=== PATIENT | female | born 1965 | race Caucasian/White ===

== ENCOUNTER 2024-05-23 13:57 | Emergency (ER) | payer OTHER, SELFPAY ==
[2024-05-23 14:01] VITALS: BP 160/96
--- NOTE | 2024-05-23 15:40 | ED.GENMED ---
History of Present Illness
General
Chief Complaint: Back Pain
Time Seen by Provider: 05/23/24 15:25
History of Present Illness
History of Present Illness:
59-year-old female presents to the emergency department for evaluation of bilateral low back pain rating down the outer legs for the past 6 weeks. Denies any acute trauma. Pain is been gradually worsening despite 2 steroid Dosepaks. Right leg
radiculopathy is worse than the left. She denies any urine retention or saddle anesthesias. 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 Denies any paresthesias.
Past History
Past History
ED Past Medical History: Asthma, Cancer (ovarian cancer), Other (OVARIAN CA) and Other (C. diff)
ED Past Surgical History: Gynecological
Social History
Tobacco: Former smoker
Alcohol: Occasional
Drug: None
Personal:
Living: with family
Review of Systems
Review of Systems
Allergies reviewed?: Yes
All Other Systems: ROS reviewed and negative except as documented in HPI and ROS
Phy Exam
Physical Exam
Physical Exam:
GEN: Well appearing, NAD, WDWN
HEENT: Oral mucosa moist, no scleral icterus
Cardiac: Regular rate
Lung: No respiratory distress, no tachypnea
MSK: No gross deformity or injuries. Able to ambulate with a slight limp, no lower extremity weakness
Skin: Good color, no pallor or jaundice, no rashes
Neuro: AO x3, moves all extremities freely
Psych: Calm, cooperative
Course
Orders/Labs/Results
Orders:
Orders
05/23/24 15:39
CT Lumbar Spine W/o Iv Contras Urgent
Comment:
Reason For Exam: non traumatic back pain, hx of lung CA
Hydrocodone 5/APAP 325 [Marianna 5/325] 1 tablet PO NOW STA
Ketorolac [Toradol] 30 mg IM NOW STA
Vital Signs
Initial and Last Documented VS:
Initial Vital Signs
Temp Pulse Resp BP Pulse Ox
98.2 F 97 18 160/96 100
05/23/24 14:01 05/23/24 14:01 05/23/24 14:01 05/23/24 14:01 05/23/24 14:01
Last Documented Vital Signs
Temp Pulse Resp BP Pulse Ox
98.2 F 91 17 134/63 100
05/23/24 14:01 05/23/24 17:37 05/23/24 17:37 05/23/24 17:37 05/23/24 14:01
MDM/Problems Addressed
MDM/Problems Addressed:
CT was obtained due to the patient's concern for past history of lung malignancy representing as a mets to the spine, imaging was reassuring here in the emergency department. She certainly has symptoms of lumbar disc herniation versus lumbar
neuropathy thus will continue with plan for outpatient MRI and start the patient on supportive treatment. No indication for urgent MRI in the emergency department
*Critical Care Note
Total Time (30-74mins, 75-104mins- exclusive of procedures): Not Applicable
ED Attending Note
-
Portions of this chart may have been created with voice recognition software.� Occasional wrong word or��sound alike� substitutions may have occurred due to the inherent limitations of voice recognition software.
Discharge Plan
Departure
Patient Disposition: Home (Routine Discharge)
Date of Disposition: 05/23/24
Time of Disposition: 17:32
Patient with high blood pressure during this ER visit?: No
Discharge Problem:
Chronic radicular low back pain
Instructions: Radiculopathy (DC)
Prescriptions:
New
oxycodone 5 mg tablet
5 mg PO TID PRN (Reason: Pain) Qty: 10 0RF
diclofenac sodium 75 mg tablet,delayed release (DR/EC)
75 mg PO BID PRN (Reason: Pain) Qty: 20 0RF
No Action
sertraline 50 MG tablet
50 mg PO DAILY
conjugated estrogens [Premarin] 0.45 MG tablet
0.3 mg PO DAILY
montelukast 10 MG tablet
10 mg PO DAILY
Bifidobacterium infantis [Align] 4 MG capsule
4 mg PO Daily
Ca carb-D3-mag [id number] [Caltrate-D3 Plus Minerals] 1 EACH tablet
1 ea PO Daily
ketorolac 10 MG tablet
10 mg PO QID Qty: 16 0RF
hydrocodone-acetaminophen 1 TABLET tablet
1 tab PO QIDPRN PRN (Reason: moderate pain) Qty: 12 0RF
ondansetron 4 MG tablet,disintegrating
4 mg PO QIDPRN PRN (Reason: NAUSEA) Qty: 20 0RF
ciprofloxacin HCl 250 MG tablet
250 mg PO BID Qty: 10 0RF
Referrals:
Gunnar Henriquez, DO [Family Provider] -
Activity Restrictions/Additional Instructions:
Get your outpatient MRI as planned
You are cleared to work with physical therapy as pain allows
Interventions
Interventions:
*Risk Screen - Suicide Last Done: 05/23/24 14:01
*General Assessment Last Done: 05/23/24 14:01
*Neglect/Abuse Screening Last Done: 05/23/24 14:01
*ED COVID-19 Vaccine History Last Done: 05/23/24 14:01
*Nursing Disposition Last Done: 05/23/24 17:42
ED-Musculoskeletal Assessment Last Done: 05/23/24 16:41
Discharge Date and Time
Discharge Date/Time: 05/23/24 17:42
Print Language: KOREAN
[2024-05-23] MEDS: NORCO 5/325 1 TABLET PO (15:48)
[2024-05-23] MEDS: TORADOL 30 MG IM (15:49)
[2024-05-23 17:37] VITALS: BP 134/63
== END 2024-05-23 17:42 | disposition home or self-care (01) ==
LOC: EMR 13:57
PROVIDERS: EMERGENCY PHYSICIAN Student in an Organized Health Care Education/Training Program; FAMILY PHYSICIAN Family Medicine
DX: M54.16 Radiculopathy, lumbar region (principal); J45.909 Unspecified asthma, uncomplicated; Z87.891 Personal history of nicotine dependence; Z85.43 Personal history of malignant neoplasm of ovary; Z85.118 Personal history of other malignant neoplasm of bronchus and lung
CPT/HCPCS: 96372; 99284; 72131